=== PATIENT | female | born 1970 | race Caucasian/White ===

== ENCOUNTER 2016-08-31 09:24 | Observation (INO) ==
--- NOTE | 2016-08-31 09:29 | Emergency Department Note ---
Disposition Clinical Impression: Chest pain, Abnormal EKG, Obesity, Dizziness, Palpitations, Headache Disposition: Admitted As Inpatient Referrals: NO,PCP [Non-Partnered Physician] - Forms: ED Satisfaction Letter General Adult HPI - General Chief complaint: ED Chest Pain Stated complaint: C/P Dizzy Time Seen by Provider: 08/31/16 09:28 - History of Present Illness HPI Narrative: 45-year-old female reports in emergency department complaining of upper to mid sternal chest pain. The pain does not appear to the left arm or left jaw are not critically to the neck. The pain is substernal in nature. Sometimes pressure-like sometimes sharp. The patient has had no cough coughing up blood or shortness of breath. There is no history of fever or rash. No trauma. No recent injury or musculoskeletal stress. There is no history of abdominal pain or vomiting. A few episodes of diarrhea reported nonbloody. The patient's son anticoagulated. The patient denies any history of CAD CHF DVT PE or cancer. She has no history of diabetes or hypertension but does report a history of hypercholesterolemia. The patient has never had a stress test or heart catheter. She also reports some dizziness. She has not passed out or had a convulsion. No weakness or numbness in arms or legs no unilateral arm or leg weakness or numbness no slurred speech or confusion. The patient reports she does not usually have chest pain. She works as a nurse in obstetrics. There is no history of leg swelling or pain coughing or bladder syncope. The patient is status post cholecystectomy and hysterectomy. She reports he has a history of asthma but has not been wheezing. The triage notes diaphoresis and exertional chest pain. The patient reports she has been dizzy, she has a history of BPPV in the past but reports this is different. She has had palpitations as well she feels like her heart races. She has not passed out reports she has to grab onto le to hold on sometimes - Related Data Home Medications Medication Instructions Recorded Confirmed Citalopram [CeleXA] 20 / PO DAILY 07/15/16 07/15/16 ClonazePAM [Clonazepam] 1 mg PO DAILY 07/15/16 07/15/16 Previous Rx's Medication Instructions Recorded Albuterol Sulfate [Albuterol 2 puff IH Q4HR #1 hfa.aer.ad 07/15/16 Inhaler] Azithromycin [Azithromycin 6-Tab 250 mg PO PER PKG DI #6 tab 07/15/16 Pack] Guaifenesin/Dm/Pseudoephedrine 1 each PO BID #20 tablet 07/15/16 [Capmist Dm Tablet] Allergies Allergy/AdvReac Type Severity Reaction Status Date / Time codeine Allergy Vomiting Verified 01/01/15 14:16 latex Allergy Rash Verified 01/01/15 14:16 acetaminophen [From Vicodin] AdvReac Abdominal Verified 07/15/16 16:10 Pain hydrocodone [From Vicodin] AdvReac Abdominal Verified 07/15/16 16:10 Pain All systems ED: reviewed and negative except as stated. Past Medical History - Past Medical History Medical history: Reports: non-contributory Surgical history: Reports: hysterectomy - Social History Smoking Status: Never smoker Smokeless Tobacco Status: No Alcohol use: Reports: none Drug use: Reports: none Physical Exam - General Limitations: no limitations General appearance: alert, in no apparent distress - Head Head exam: atraumatic, normocephalic, normal inspection - Eye Eye exam: Present: normal appearance, PERRL, EOMI - ENT ENT exam: normal exam, normal oropharynx, mucous membranes moist, TM's normal bilaterally, normal external ear exam - Neck Neck exam: Present: normal inspection, full ROM, trachea midline - Chest Chest inspection: Present: symmetric chest wall rise. Absent: tenderness - Respiratory Respiratory exam: Present: normal lung sounds bilaterally. Absent: respiratory distress - Cardiovascular Cardiovascular exam: Present: regular rate, normal rhythm, normal heart sounds - Abdominal Exam Abdominal exam: Present: soft, Non-Tender, normal bowel sounds. Absent: tenderness, distention, guarding, rebound, rigidity, pulsatile mass - Extremities Exam Extremities exam: Present: normal inspection, full ROM, normal capillary refill. Absent: tenderness, pedal edema, joint swelling, calf tenderness - Expanded Lower Extremity Exam Lower leg exam: Absent: Homans' sign Neurovascular/Tendon exam: Present: normal capillary refill. Absent: motor deficit, sensory deficit, tendon deficit, extremity cold to touch, pallor - Back Exam Back exam: Present: normal inspection, full ROM. Absent: tenderness, CVA tenderness (R), CVA tenderness (L), vertebral tenderness - Neurological Exam Neurological exam: Present: alert, oriented X3, CN II-XII intact. Absent: motor sensory deficit - Psychiatric Psychiatric exam: Present: normal affect, normal mood - Skin Skin exam: Present: warm, dry, intact, normal color. Absent: rash, cyanosis, diaphoresis, erythema, pallor, mottled Course Vital Signs Temperature 97.9 F 08/31/16 09:26 Pulse Rate 71 08/31/16 09:26 Respiratory Rate 16 08/31/16 09:26 Blood Pressure 130/96 08/31/16 09:26 O2 Sat by Pulse Oximetry 97 08/31/16 09:26 Temperature 97.9 F 08/31/16 09:26 Pulse Rate 65 08/31/16 10:30 Respiratory Rate 16 08/31/16 10:30 Blood Pressure 130/79 08/31/16 10:30 O2 Sat by Pulse Oximetry 98 08/31/16 10:30 Oxygen Delivery Oxygen Delivery Room Air Medical Decision Making - MDM Narrative Medical decision making narrative: The patient is experiencing chest pain, her EKG is abnormal, she is obese and has a history of hypercholesterolemia, she has never had a heart catheter or stress test. Her heart score is at the 4 range. The patient also describes palpitations and has been dizzy and having trouble walking. She displays no focal neurologic defects she has no history of CVA. CT scan of the head was ordered. Based on her symptomatology, just highly unusual for her, I think it be appropriate to admit the patient for further evaluation. I reviewed the case with hospitalist on-call - Lab Data Lab results reviewed: Yes I reviewed the patient's lab results. Result diagrams: 08/31/16 09:50 08/31/16 09:50 Lab Results 08/31/16 08/31/16 08/31/16 Range/Units 09:50 09:50 09:50 WBC (4.3-11.1) K/mcL RBC (3.82-4.97) M/mcL Hgb (11.5-15.4) g/dL Hct (35.3-44.9) % MCV (83.0-100.0) fL MCH (28.0-33.3) pg MCHC (31.6-35.5) g/dL RDW (11.5-14.5) % Plt Count (140-400) K/mcL MPV (9.4-12.4) fL Immature Gran % (0-4) % Seg Neutrophils % % Lymphocytes % % Monocytes % % Eosinophils % % Basophils % % Neutrophils # (1.6-8.9) K/mcL Lymphocytes # (0.6-4.6) K/mcL Monocytes # (0.0-1.3) K/mcL Eosinophils # (0.0-0.6) K/mcL Basophils # (0.0-0.2) K/mcL PT 11.5 (9.4-12.1) Seconds INR 1.1 APTT 34.0 (26.0-36.0) Seconds D-Dimer 309 (0-500) ng/mLFEU Sodium 140 (136-145) mEq/L Potassium 3.7 (3.5-4.5) mEq/L Chloride 108 (98-109) mEq/L Carbon Dioxide 27 (19-29) mEq/L BUN 10 (7-20) mg/dL Creatinine 0.73 (0.57-1.11) mg/dL Est GFR ( Amer) > 60 (> 60) Est GFR (Non-Af Amer) > 60 (> 60) BUN/Creatinine Ratio 14 (6-26) Glucose 81 (70-99) mg/dL Calculated Osmolality 288 (280-300) Lactic Acid 0.9 (0.5-2.2) mmol/L Calcium 8.7 (8.6-10.8) mg/dL Total Bilirubin 0.6 (0.2-1.2) mg/dL Direct Bilirubin 0.2 (0.0-0.5) mg/dL Indirect Bilirubin 0.4 (0.0-1.2) mg/dL AST 20 (5-34) Units/L ALT 33 (0-55) Units/L Alkaline Phosphatase 80 (38-126) Units/L Troponin I (0-0.03) ng/mL C-Reactive Protein 8 H (Less than 5) mg/L Serum Total Protein 7.4 (6.0-8.3) g/dL Albumin 3.5 (3.5-5.0) g/dL Globulin 3.9 H (2.4-3.5) g/dL Albumin/Globulin Ratio 0.9 L (1.1-2.2) Lipase 21 (8-78) Units/L 08/31/16 08/31/16 Range/Units 09:50 09:50 WBC 5.5 (4.3-11.1) K/mcL RBC 4.66 (3.82-4.97) M/mcL Hgb 15.3 (11.5-15.4) g/dL Hct 43.6 (35.3-44.9) % MCV 93.6 (83.0-100.0) fL MCH 32.8 (28.0-33.3) pg MCHC 35.1 (31.6-35.5) g/dL RDW 13.5 (11.5-14.5) % Plt Count 228 (140-400) K/mcL MPV 10.1 (9.4-12.4) fL Immature Gran % 0.2 (0-4) % Seg Neutrophils % 65.3 % Lymphocytes % 17.8 % Monocytes % 11.4 % Eosinophils % 4.0 % Basophils % 1.3 % Neutrophils # 3.6 (1.6-8.9) K/mcL Lymphocytes # 1.0 (0.6-4.6) K/mcL Monocytes # 0.6 (0.0-1.3) K/mcL Eosinophils # 0.2 (0.0-0.6) K/mcL Basophils # 0.1 (0.0-0.2) K/mcL PT (9.4-12.1) Seconds INR APTT (26.0-36.0) Seconds D-Dimer (0-500) ng/mLFEU Sodium (136-145) mEq/L Potassium (3.5-4.5) mEq/L Chloride (98-109) mEq/L Carbon Dioxide (19-29) mEq/L BUN (7-20) mg/dL Creatinine (0.57-1.11) mg/dL Est GFR ( Amer) (> 60) Est GFR (Non-Af Amer) (> 60) BUN/Creatinine Ratio (6-26) Glucose (70-99) mg/dL Calculated Osmolality (280-300) Lactic Acid (0.5-2.2) mmol/L Calcium (8.6-10.8) mg/dL Total Bilirubin (0.2-1.2) mg/dL Direct Bilirubin (0.0-0.5) mg/dL Indirect Bilirubin (0.0-1.2) mg/dL AST (5-34) Units/L ALT (0-55) Units/L Alkaline Phosphatase (38-126) Units/L Troponin I 0.00 (0-0.03) ng/mL C-Reactive Protein (Less than 5) mg/L Serum Total Protein (6.0-8.3) g/dL Albumin (3.5-5.0) g/dL Globulin (2.4-3.5) g/dL Albumin/Globulin Ratio (1.1-2.2) Lipase (8-78) Units/L - Radiology Data Radiology results reviewed: Yes I reviewed the patient's radiology results.
[2016-08-31 10:03] LABS: Basophils # 0.1 K/mcL (0.0-0.2); Basophils % 1.3 %; Eosinophils # 0.2 K/mcL (0.0-0.6); Hematocrit 43.6 % (35.3-44.9); Hemoglobin 15.3 g/dL (11.5-15.4); Immature Granulocytes % 0.2 % (0-4); Lymphocytes % 17.8 %; Mean Corpuscular HGB Conc 35.1 g/dL (31.6-35.5); Mean Corpuscular Hemoglobin 32.8 pg (28.0-33.3); Mean Corpuscular Volume 93.6 fL (83.0-100.0); Mean Platelet Volume 10.1 fL (9.4-12.4); Monocytes # 0.6 K/mcL (0.0-1.3); Monocytes % 11.4 %; Neutrophils # 3.6 K/mcL (1.6-8.9); Platelet Count 228 K/mcL (140-400); Red Blood Count 4.66 M/mcL (3.82-4.97); Red Cell Distribution Width 13.5 % (11.5-14.5); Segmented Neutrophils % 65.3 %
[2016-08-31 10:08] LABS: INR 1.1; Prothrombin Time 11.5 Seconds (9.4-12.1)
[2016-08-31 10:17] LABS: Alanine Aminotransferase 33 Units/L (0-55); Albumin 3.5 g/dL (3.5-5.0); Albumin/Globulin Ratio 0.9 (1.1-2.2); Alkaline Phosphatase 80 Units/L (38-126); Aspartate Amino Transferase 20 Units/L (5-34); BUN/Creatinine Ratio 14 (6-26); Bilirubin,Direct 0.2 mg/dL (0.0-0.5); Bilirubin,Indirect 0.4 mg/dL (0.0-1.2); Bilirubin,Total 0.6 mg/dL (0.2-1.2); Blood Urea Nitrogen 10 mg/dL (7-20); C-Reactive Protein 8 mg/L (Less than 5); Calcium 8.7 mg/dL (8.6-10.8); Carbon Dioxide 27 mEq/L (19-29); Chloride 108 mEq/L (98-109); Globulin 3.9 g/dL (2.4-3.5); Glucose 81 mg/dL (70-99); Lipase 21 Units/L (8-78); Osmolality,Calculated 288 (280-300); Potassium 3.7 mEq/L (3.5-4.5); Sodium 140 mEq/L (136-145); Total Protein 7.4 g/dL (6.0-8.3); eGFR For African Americans > 60 (> 60); eGFR For Non-African Americans > 60 (> 60)
[2016-08-31] MEDS ORDERED: Aspirin 325 MG TABLET PO ONE (10:36)
--- NOTE | 2016-08-31 11:28 | Internal Med History&Physical ---
Date of Encounter: 08/31/16 Time of Encounter: 11:26 Assessment and Plan (1) Chest pain Current visit: Yes Status: Acute Chest pain has some atypical features in the fact that it is not related to exertion unless only for seconds. However her EKG shows about subtle very minimal ST depression so she will be admitted for observation. Serial cardiac markers will be checked. Cardiology will be consultative. She will need a stress test of acute coronary syndrome is ruled out. D dimer is normal Qualifiers: Qualified Code(s): R07.9 - Chest pain, unspecified (2) Dizziness Current visit: Yes Status: Acute I suspect vertigo. She is having horizontal nystagmus towards the right and got dizzy during test. She is also having nausea gate unsteadiness. CT scan was performed in the emergency room awaits results. I would also check carotid Doppler's. Iris MALLORY Internal Medicine - H&P: HPI Chief complaint: dizziness History of present illness: Ms. Holly is a 45 year old female with a history of gastric bypass, BPPV presents to the emergency room today with the main complain of dizziness. Patient mentioned that today she started noticing dizziness which she describes as a floating sensation associated with nausea but no vomiting. She would start having the sensation when she gets up and starts walking. She was also feeling unsteady and has to hold onto the wall she is walking. She denies any focal weakness. Patient has also been complaining since yesterday over episodes of lower sternal chest pain lasts for 30 seconds no relation with exertion but occasionally related with inspiration. No prior history of DVT or pulmonary embolism or cancers. D-dimer in the emergency room was normal. Denies any sputum Production fevers chills. She has iron deficiency anemia related to her gastric bypass surgery however she is receiving iron infusion and her hemoglobin is normal. Past Med Surg Social Fam HX - Past Medical History Medical history: non-contributory Psychiatric history: depression - Past Surgical History Surgical History: hysterectomy - Social History Smoking Status: Never smoker Smokeless Tobacco Status: No Alcohol use: none Drug use: none Internal Medicine - H&P: Meds Cholecalciferol (D-3) [Vitamin D] 1,000 unit PO DAILY 08/31/16 [History] Allergies codeine Allergy (Verified 08/31/16 11:19) Vomiting latex Allergy (Verified 08/31/16 11:19) Rash acetaminophen [From Vicodin] Adverse Reaction (Verified 08/31/16 11:19) Abdominal Pain hydrocodone [From Vicodin] Adverse Reaction (Verified 08/31/16 11:19) Abdominal Pain All Systems PM: A 10-system review of systems was performed and is negative for pertinent findings except as documented above in the HPI. Review of systems: 10 point review of systems is negative except for HPI. - Constitutional Vitals: Temp Pulse Resp BP Pulse Ox 97.9 F 65 16 130/79 98 08/31/16 09:26 08/31/16 10:30 08/31/16 10:30 08/31/16 10:30 08/31/16 10:30 Exam: Gen.: patient is alert oriented not in distress. Cardiac: Normal S1 S2 no additional sounds or murmurs chest: clear to auscultation abdomen soft nontender nondistended normal bowel sounds lower extremity: lax calf muscles neuro slight horizontal nystagmus towards the right side Internal Med - H&P Results - Labs CBC & Chem 7: 08/31/16 09:50 08/31/16 09:50
[2016-08-31] MEDS: Famotidine 20 MG TABLET PO SCH (15:06)
[2016-08-31] MEDS: *HR* Heparin 5,000 UNIT/ML VIAL SQ SCH ×2 (15:06→21:18)
[2016-08-31] MEDS ORDERED: Ibuprofen 400 MG TABLET PO PRN (20:42)
[2016-08-31] MEDS ORDERED: Naloxone 0.4 MG/ML INJ IVP PRN (20:42)
[2016-08-31] MEDS ORDERED: Ketorolac 30 MG/ML VIAL IVP STA (20:43)
[2016-08-31] MEDS ORDERED: *HR* Promethazine 25 MG/ML VIAL IVP STA (20:43)
[2016-09-01] MEDS ORDERED: *HR* Promethazine 25 MG/ML VIAL IVP PRN (01:00)
[2016-09-01] MEDS ORDERED: Ketorolac 30 MG/ML VIAL IVP PRN (03:00)
[2016-09-01 04:27] LABS: Basophils # 0.1 K/mcL (0.0-0.2); Basophils % 1.4 %; Eosinophils # 0.2 K/mcL (0.0-0.6); Eosinophils % 5.3 %; Hematocrit 40.8 % (35.3-44.9); Immature Granulocytes % 0.2 % (0-4); Lymphocytes # 1.1 K/mcL (0.6-4.6); Lymphocytes % 25.9 %; Mean Corpuscular HGB Conc 33.6 g/dL (31.6-35.5); Mean Corpuscular Volume 95.3 fL (83.0-100.0); Mean Platelet Volume 9.9 fL (9.4-12.4); Monocytes # 0.5 K/mcL (0.0-1.3); Monocytes % 11.5 %; Neutrophils # 2.4 K/mcL (1.6-8.9); Platelet Count 184 K/mcL (140-400); Red Blood Count 4.28 M/mcL (3.82-4.97); Red Cell Distribution Width 13.4 % (11.5-14.5); Segmented Neutrophils % 55.7 %
[2016-09-01 04:30] LABS: Hemoglobin 13.7 g/dL (11.5-15.4)
[2016-09-01 04:48] LABS: BUN/Creatinine Ratio 20 (6-26); Blood Urea Nitrogen 14 mg/dL (7-20); Calcium 8.4 mg/dL (8.6-10.8); Carbon Dioxide 22 mEq/L (19-29); Chloride 110 mEq/L (98-109); Glucose 96 mg/dL (70-99); Osmolality,Calculated 294 (280-300); Potassium 3.8 mEq/L (3.5-4.5); Sodium 142 mEq/L (136-145); eGFR For African Americans > 60 (> 60); eGFR For Non-African Americans > 60 (> 60)
[2016-09-01] MEDS: *HR* Heparin 5,000 UNIT/ML VIAL SQ SCH ×3 (05:47→21:27)
[2016-09-01] MEDS: Famotidine 20 MG TABLET PO SCH ×2 (08:54→16:02)
[2016-09-01] MEDS: Aspirin Enteric Coated 325 MG Tablet PO SCH (08:54)
[2016-09-01] MEDS ORDERED: Regadenoson 0.4 MG/5 ML SYRINGE IVP ONE (09:06)
--- NOTE | 2016-09-01 09:07 | Electrocardiograph Report ---
[place] [id number] Test Date: 2016-08-31 Pat Name: Gricelda Holly Department: 103 Room: 3B54 Gender: F Councilman: [facility] : 1970 Requested By: Solo Jones Order Number: [id number] Reading MD: Kd Bull MD Measurements Intervals [place] Rate: 72 P: 30 NH: 149 QRS: 4 QRSD: 80 T: 9 QT: 357 QTc: 381 Interpretive Statements SINUS RHYTHM LEFT ATRIAL ENLARGEMENT Electronically Signed On 09-01-2016 9:05:53 EDT by Kd Bull MD
--- NOTE | 2016-09-01 18:07 | Internal Med Progress Note ---
Date of Encounter: 09/01/16 Time of Encounter: 08:15 - Assessment and plan (1) Dizziness Current Visit: Yes Status: Acute Assessment and plan: Patient was admitted for 2-3 day history of weakness. She states that she feels like she is floating. Yesterday on the way to work she was disoriented, leaning to the right, and had a horrible wall to walk. She says she does not remember walking from her car to the time clock. The dizziness is constant with any movement. When she is lying in a supine position she is fine. She reports spinning and floating. She denies any palpitations, no shortness of breath. She does report nausea along with the dizziness. She is not started a new medications. She denies any vision or speech deficits. She has had negative troponins 3. Patient had a head CT was abnormal. Asymmetric hypodensity in the left temporal lobe. She then had an MRI of the brain MR a of the head and neck without contrast. This showed no acute intracranial abnormality, the P1 and proximal V2 segments of the left vertebral artery are not opacified. Recommended a CTA of the neck. Otherwise unremarkable test. Patient also had a CTA of the neck as suggested. Also was unremarkable, stating the left proximal vertebral artery was likely obscured by motion artifact and the MRA neck. Her EKG is normal sinus rhythm with possible left atrial enlargement. She is having a 2 day stress test. Antivert 25 mg by mouth 3 times a day when necessary nausea Telemetry Up with assistance Fall precautions Consult cardiology if stress abnormal (2) Weakness of right leg Current Visit: Yes Status: Acute Assessment and plan: During exam today patient had obvious difficulty holding right leg off the bed. She did demonstrate decreased strength in the right side compared to the left. She denies feeling weakness when she was up walking, however she did say that she was leaning to the right at that time. She reports right hip pain with exam. Right hip x-ray Plan as above (3) Chest pain Current Visit: Yes Status: Acute Assessment and plan: Patient reports a couple month history of midsternal chest pain with radiation under left breast. She reports it is intermittent and sharp, lasting 30-45 seconds. She denies shortness of breath or nausea, but does report diaphoresis sometimes chest pain was worse yesterday. Her troponins are negative 3. EKG was normal sinus rhythm, with possible left atrial enlargement. Rate was 72, ME interval was 149, QTc 381, QRS was 80. 2 day stress test Client Server Programmer lab Cardiology consult if necessary. Qualifiers: Chest pain type: unspecified Qualified Code(s): R07.9 - Chest pain, unspecified (4) Obesity Current Visit: Yes Status: Chronic Assessment and plan: Bry. Lifestyle changes. Qualifiers: Obesity type: due to excess calories Obesity severity: morbid Qualified Code(s): E66.01 - Morbid (severe) obesity due to excess calories - Time Spent With Patient less than 15 minutes - Subjective Interval history: Patient reports history of dizziness for 2-3 days. She states as if she feels she is floating. Yesterday she drove herself to work and once she got there she felt disoriented, she was leaning to the right, and she had to hold onto the wall to walk. She says she does not remember walking from her car into the building to the time clock. She says the dizziness is constant with any movement. When she is lying supine she is not dizzy. She reports a spinning and floating feeling. She denies any palpitations. Reports nausea with the symptoms. There have been no new medications started. She denies blurred vision or impaired speech. During her neuro exam she had obvious right lower extremity weakness. She was unable to hold her leg study off the bed. Strength was obviously less than the right side. She does report pain in the right hip but denies any injury. She also reports intermittent chest pain for a few months which she states may have become worse yesterday, where she just may have been more aware of it yesterday. She reports it is midsternal with radiation under her left breast. It is intermittent and sharp, lasting 30-45 seconds. Happens a few times a day. She denies shortness of breath or nausea but does report diaphoresis sometimes. She has no cardiac history and she is a nonsmoker. - Constitutional Vitals: Temp Pulse Resp BP Pulse Ox 97.5 F L 73 14 108/75 95 09/01/16 15:13 09/01/16 15:13 09/01/16 15:13 09/01/16 15:13 09/01/16 15:13 General appearance: Present: cooperative, A&O X 3, no acute distress, obese, answers questions appropriately - Head Head exam: Present: normal inspection - Eye Eye exam: Present: normal appearance, PERRL, conjuntiva pink. Absent: nystagmus - ENT ENT exam: Present: mucous membranes moist, normal exam - Neck Neck exam general surgery: Present: normal inspection. Absent: lymphadenopathy , tenderness - Respiratory Respiratory exam: Present: CTAB. Absent: respiratory distress, rhonchi, wheezes - Cardiovascular Cardiovascular exam: Present: RRR, +S1, +S2 - Expanded Cardiovascular Exam Peripheral pulses: 2+: Dorsalis Pedis (L) PM, Dorsalis Pedis (R) PM - GI/Abdominal GI/Abdominal exam: Present: distended, normal bowel sounds, soft. Absent: tenderness - Extremities Exam Extremities exam: Present: normal capillary refill, warm, radial pulses palpable and symetrical. Absent: pedal edema, tenderness - Neurological Exam Neurological exam: Present: alert, oriented X3, no focal deficits, strengths equal and symetr throughout. Absent: pronater drift, facial droop, speech deficit - Expanded Neurological Exam Neurological exam expanded: Absent: ataxia Patient oriented to: Present: person, place, time Speech: Absent: expressive aphasia, garbled, stutter Cranial Nerves: tongue deviation PM: Normal Cerebellar function: finger to nose: Normal, heel to sullivan: Normal Upper motor neuron: Babinski sign: Normal, pronator drift: Normal Neuro motor strength exam: LUE: 5, RUE: 5, LLE: 5 Coma Scale Eye Opening: Spontaneous Coma Scale Motor Response: Obeys Commands Coma Scale Verbal Response: Oriented Coma Scale Total: 15 Internal Medicine: Result - Labs CBC & Chem 7: 09/01/16 04:07 09/01/16 04:07 Labs: Short CBC 09/01/16 Range/Units 04:07 WBC 4.4 (4.3-11.1) K/mcL Hgb 13.7 D (11.5-15.4) g/dL Hct 40.8 (35.3-44.9) % Plt Count 184 (140-400) K/mcL Neutrophils # 2.4 (1.6-8.9) K/mcL BMP 09/01/16 04:07 Sodium 142 Potassium 3.8 Chloride 110 H Carbon Dioxide 22 BUN 14 Creatinine 0.69 Glucose 96 Calcium 8.4 L - ABG Interpretation ABG results: PT/INR, D-dimer PT 11.5 Seconds (9.4-12.1) 08/31/16 09:50 D-Dimer 309 ng/mLFEU (0-500) 08/31/16 09:50 - Impressions Impressions Brain MRI 08/31/16 12:05 IMPRESSION: 1. No acute intracranial abnormality. Specifically, no acute infarction. 2. The V1 and proximal V2 segments of the left vertebral artery are not opacified. This may be due to congenital hypoplasia, stenosis, or possibly dissection. Further evaluation with CTA of the neck is recommended. 3. Otherwise, unremarkable MRA of the neck. 4. Unremarkable MRA of the head. The findings were sent to the Radiology Results Communication Center at 2:13 pm on 08/31/2016to be communicated to a licensed caregiver. D/ / 08/31/2016 14:17:06 Nash Nelson MD / Katie López Interpreting Provider: Nash Nelson MD Neck MRA 08/31/16 12:05 IMPRESSION: 1. No acute intracranial abnormality. Specifically, no acute infarction. 2. The V1 and proximal V2 segments of the left vertebral artery are not opacified. This may be due to congenital hypoplasia, stenosis, or possibly dissection. Further evaluation with CTA of the neck is recommended. 3. Otherwise, unremarkable MRA of the neck. 4. Unremarkable MRA of the head. The findings were sent to the Radiology Results Communication Center at 2:13 pm on 08/31/2016to be communicated to a licensed caregiver. D/ / 08/31/2016 14:17:06 Nash Nelson MD / Katie López Interpreting Provider: Nash Nelson MD Head MRA 08/31/16 12:07 IMPRESSION: 1. No acute intracranial abnormality. Specifically, no acute infarction. 2. The V1 and proximal V2 segments of the left vertebral artery are not opacified. This may be due to congenital hypoplasia, stenosis, or possibly dissection. Further evaluation with CTA of the neck is recommended. 3. Otherwise, unremarkable MRA of the neck. 4. Unremarkable MRA of the head. The findings were sent to the Radiology Results Communication Center at 2:13 pm on 08/31/2016to be communicated to a licensed caregiver. D/ / 08/31/2016 14:17:06 Nash Nelson MD / Katie López Interpreting Provider: Nash Nelson MD Neck CTA 09/01/16 08:38 IMPRESSION: Unremarkable CTA of the neck. The proximal left vertebral artery was likely obscured by motion artifact on the preceding MRA neck. D/ / Nash Nelson MD / Nash Nelson MD Interpreting Provider: Nash Nelson MD - VTE Documentation of Mechanical Device: Intermittent pneumatic compression device Consult Discharge Plan - Plan Referrals: Brayan Sahu MD [Primary Care Provider] - 09/06/16 10:00 am
[2016-09-02 05:32] LABS: Basophils # 0.1 K/mcL (0.0-0.2); Basophils % 1.1 %; Eosinophils # 0.3 K/mcL (0.0-0.6); Eosinophils % 6.6 %; Hemoglobin 13.3 g/dL (11.5-15.4); Immature Granulocytes % 0.4 % (0-4); Lymphocytes # 0.9 K/mcL (0.6-4.6); Lymphocytes % 19.9 %; Mean Corpuscular HGB Conc 33.3 g/dL (31.6-35.5); Mean Corpuscular Hemoglobin 31.7 pg (28.0-33.3); Mean Corpuscular Volume 95.5 fL (83.0-100.0); Mean Platelet Volume 10.2 fL (9.4-12.4); Monocytes # 0.5 K/mcL (0.0-1.3); Monocytes % 11.5 %; Neutrophils # 2.8 K/mcL (1.6-8.9); Platelet Count 168 K/mcL (140-400); Red Blood Count 4.19 M/mcL (3.82-4.97); Red Cell Distribution Width 13.2 % (11.5-14.5); Segmented Neutrophils % 60.5 %
[2016-09-02 05:37] LABS: BUN/Creatinine Ratio 24 (6-26); Blood Urea Nitrogen 15 mg/dL (7-20); Calcium 7.8 mg/dL (8.6-10.8); Carbon Dioxide 23 mEq/L (19-29); Chloride 110 mEq/L (98-109); Glucose 95 mg/dL (70-99); Osmolality,Calculated 291 (280-300); Potassium 3.8 mEq/L (3.5-4.5); Sodium 140 mEq/L (136-145); eGFR For African Americans > 60 (> 60); eGFR For Non-African Americans > 60 (> 60)
[2016-09-02] MEDS: *HR* Heparin 5,000 UNIT/ML VIAL SQ SCH (05:57)
[2016-09-02] MEDS: Famotidine 20 MG TABLET PO SCH (08:31)
[2016-09-02] MEDS: Aspirin Enteric Coated 325 MG Tablet PO SCH (08:31)
--- NOTE | 2016-09-02 09:52 | Nuclear Medicine Stress Report ---
Regadenoson Nuclear 2 day Name: Gricelda Holly Date of Study: 09/01/2016 Date: 1970 Ht: 64.0 in Medical Record#: [id number] Age: 45 Wt: 259.0 lb Gender: Female Order #: [id number] Location: [facility] Room: [facility] Supervising Provider: Alexandra Washington CNP Ordering Physician: Jessica Dunn CNP Primary Care Physician: Brayan Sahu MD Stress Technologist: Marisel Ledesma SKILL TRAINING PROGRAM COORDINATOR, CCT Director Of Compensation: Kay Sharp Indications: DIZZINESS Impression: Perfusion imaging was negative for ischemia or infarct. Gated EF = >70%. History: Hypercholesteremia Stress Test Summary: Stress Test Type: Pharmacologic Regadenoson 0.4mg/5ml given IV Baseline Information: Initial Heart Rate: 65 Blood Pressure: 114/80 Stress Information: Test Terminated Due to (primary): As per protocol Maximum Blood Pressure: 120/78 Maximum Heart Rate: 96 Percent Maximum Heart Rate Achieved: 55 Double Product: 12067 METS Reached: 1 Symptoms: Dizziness, No chest symptoms Nuclear Summary: SPECT myocardial perfusion imaging using Tc99m Sestamibi given intravenously was performed at rest and following cardiac stress testing. The resting images were obtained following initial dose of 32.4 mCi. Following stress an additional dose of 35.3 mCi was given at peak exercise or 30 seconds post regadenoson infusion. Medication Given: Time Medication Dose Units Route Findings: Stress Note * Resting ECG demonstrated normal sinus rhythm with nonspecific ST abnormalities. * No appreciable change in ECG from baseline during pharmacologic infusion. * No arrhythmias were noted during stress. * Patient had no chest pain during stress. Hemodynamic responses * Normal hemodynamic responses to pharmacologic stress. Study Quality * Study quality was fair. Gated EF > 70% * Gated EF > 70%. Left Ventricle * The left ventricle is not dilated. NORMALS * Normal wall motion. * Normal segmental perfusion in stress. * Normal Segmental Perfusion in rest. TID * No evidence of transient ischemic dilatation. Lung Uptake * There is no evidence of increase lung uptake. Updated by Mandie Davila on 09/02/2016 9:48:04 AM electronically signed on 09/02/2016 9:48:41 AM with status of Final
[2016-09-02 12:11] VITALS: BP 100/67
--- NOTE | 2016-09-02 13:13 | Neurology - Consult Note ---
Date of Encounter: 09/02/16 Time of Encounter: 13:09 History of Present Illness Chief complaint: right sided weakness HPI: Ms. Holly is a 45 year old female with PMH significant for obesity, s/p gastric bypass surgery who initially presented to ER with new onset of chest pain and dizziness. 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 Neurology was consulted due to complaints of right sided weakness. further inquiry reveals that that patient has had back pain shooting down to her right leg for a while. When pain starts the right leg is weak. She says that the weakness is new but did admit that it was related to the pain. The right arm weakness was witnessed by 'other people' and she does not necessarily feel week. No speech difficulty. Has some dizziness but no nystagmus noted. Past Med Surg Social Fam HX - Past Medical History Medical history: non-contributory Psychiatric history: depression - Past Surgical History Surgical History: hysterectomy - Social History Smoking Status: Never smoker Smokeless Tobacco Status: No Alcohol use: none Drug use: none - Family History Father Living Status: Still Living Hx Family Respiratory Disorders: Yes (COPD) Medications and Allergies Cholecalciferol (D-3) [Vitamin D] 1,000 unit PO DAILY 08/31/16 [History] Allergies codeine Allergy (Verified 08/31/16 11:19) Vomiting latex Allergy (Verified 08/31/16 11:19) Rash acetaminophen [From Vicodin] Adverse Reaction (Verified 08/31/16 11:19) Abdominal Pain hydrocodone [From Vicodin] Adverse Reaction (Verified 08/31/16 11:19) Abdominal Pain All Systems: A 10-system review of systems was performed and is negative for pertinent findings except as documented above in the HPI. Physical Examination - Vital Signs Vital Signs: Initial Vital Signs Temp Pulse Resp BP Pulse Ox 97.9 F 71 16 130/96 97 08/31/16 09:26 08/31/16 09:26 08/31/16 09:26 08/31/16 09:26 08/31/16 09:26 - Constitutional General appearance: comfortable - Neurologic Sensorimotor examination: intact Detailed motor examination: grossly full strength in all extremities (except some giveaway weakness to right leg, due to pain. hand radiology assistant slightly weak but no pronotor drift seen) Motor examination - right side: 5/5: deltoids, biceps, triceps, wrist flexion, wrist extension, radiology assistant, hip flexors, tibialis Anterior, quadriceps, toe extension (EHL), plantarflexion Detailed sensory examination: intact Posture: other (NOne) Reflex and gait examination: intact Reflexes: Biceps: 1+, Triceps: 1+, Brachioradialis: 1+, Patella: 1+ Mental Status Examination: awake, alert, oriented to person, oriented to place, oriented to time, follows commands appropriately, answers questions appropriately, no agnosia, no aphasia, no aproxia Cranial nerve examination: PERRL, EOMI, visual smith intact, corneal reflexes brisk symmetrically, sensory to face intact, mastication intact, no facial asymmetry is present, no dysarthria, hearing is intact symmetrically, soft palate elevates bilaterally upon phonation, gag reflex intact, flexes SCM and trapezius muscles symmetrically with full power, tongue protrudes midline, no atrophy or facial fasiculations present Results - Laboratory Findings CBC and BMP: 09/02/16 04:59 09/02/16 04:59 Abnormal lab findings: Abnormal lab results Chloride 110 mEq/L (98-109) H 09/02/16 04:59 Calcium 7.8 mg/dL (8.6-10.8) L 09/02/16 04:59 C-Reactive Protein 8 mg/L (Less than 5) H 08/31/16 09:50 Globulin 3.9 g/dL (2.4-3.5) H 08/31/16 09:50 Albumin/Globulin Ratio 0.9 (1.1-2.2) L 08/31/16 09:50 Consult Discharge Plan - Plan Referrals: Brayan Sahu MD [Primary Care Provider] - 09/06/16 10:00 am
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
[2016-09-03] MEDS ORDERED: Cholecalciferol (D-3) 1,000 UNIT TABLET PO SCH (09:00)
[2016-09-03 19:37] LABS: CK-MB (CK isoenzymes) 0 % (0-4); CK-MM (CK-isoenzymes) 100 % (96-100)
[2016-09-04 07:20] LABS: CK Total (Ck Isoenzymes) 44 U/L (20-180); CK-BB (CK isoenzymes) 0 % (0-0)
== END 2016-09-02 14:49 | disposition home or self-care (01) ==
LOC: EMEROO 09:24 → 3BNU 09:24
PROVIDERS: ADMIT Hospitalist; ATTEND Registered Nurse